=== PATIENT | female | born 2000 | race Caucasian/White ===

== ENCOUNTER 2023-10-20 16:20 | Inpatient (IN) | payer BC, MEDICARE ==
[~2023-10-20] VITALS: Ht 172.7 cm; Wt 99.8 kg
[2023-10-20 17:01] LABS: BASOPHILS # (AUTO) 0.2 K/UL (0.0-0.2); BASOPHILS % (AUTO) 2.3 % (0.0-2.0); EOSINOPHILS # (AUTO) 0.2 K/uL (0.0-0.7); EOSINOPHILS % (AUTO) 2.2 % (0.0-7.0); HEMATOCRIT 35.1 % (31.2-41.9); HEMOGLOBIN 11.1 g/dL (10.9-14.3); LYMPHOCYTES % (AUTO) 12.5 % (20.5-51.5); MEAN CORPUSCULAR HEMOGLOBIN 25.5 uug (24.7-32.8); MEAN CORPUSCULAR HGB CONC 32 g/dL (32.3-35.6); MEAN CORPUSCULAR VOLUME 80.7 fL (75.5-95.3); MONOCYTES # (AUTO) 0.4 K/uL (0.1-1.30); NEUTROPHILS # (AUTO) 6.4 K/uL (1.8-8.9); PLATELET COUNT (AUTO) 193 K/uL (179-408); RED BLOOD CELL COUNT(AUTO) 4.35 MIL/uL (3.63-4.92); RED CELL DISTRIBUTION WIDTH 13.7 % (12.3-17.7); WHITE BLOOD COUNT (AUTO) 8.3 K/uL (3.8-11.8)
[2023-10-20 17:16] LABS: DIFFERENTIAL COMMENT 1
[2023-10-20 17:27] LABS: AMMONIA 21 umol/L (11-32); CALCIUM 9.5 mg/dL (8.5-10.1); CARBON DIOXIDE 24 mmol/L (21-32); CHLORIDE 103 mmol/L (98-107); CREATININE 0.8 mg/dL (0.6-1.3); GLUCOSE 140 mg/dL (74-106); POTASSIUM 3.3 mmol/L (3.5-5.1); SODIUM SERUM 137 mmol/L (136-145); UREA NITROGEN, BLOOD 6 mg/dL (7-18)
[2023-10-20 17:28] LABS: *BILIRUBIN,URIN NEGATIVE (NEGATIVE); *BLOOD, URINE NEGATIVE (NEGATIVE); *CLARITY,URINE CLEAR (CLEAR); *COLOR,URINE YELLOW (YELLOW); *KETONES,URINE NEGATIVE (NEGATIVE); *PROTEIN,URINE NEGATIVE (NEGATIVE); *UROBILINOGEN,URINE 0.2 E.U./dl (NORMAL); LEUKOCYTE ESTERASE ,URINE NEGATIVE (NEGATIVE); NITRITE, URINE NEGATIVE (NEGATIVE); PH,URINE 7.5 (5.0-8.0); UGLUCOSE NEGATIVE (NEGATIVE)
[2023-10-20 17:35] LABS: ALANINE AMINOTRANSFERASE 30 U/L (14-59); ALBUMIN 3.4 g/dL (3.4-5.0); ALKALINE PHOSPHATASE 76 U/L (50-136); ASPARTATE AMINOTRANSFERASE 16 U/L (15-37); BILIRUBIN,DIRECT 0.1 mg/dL (0.0-0.2); BILIRUBIN,TOTAL 0.2 mg/dL (0.2-1.0); TOTAL PROTEIN, SERUM 7.3 g/dL (6.4-8.2)
[2023-10-20 17:36] LABS: *URINE HCG, QUAL NEGATIVE (NEGATIVE)
[2023-10-20 17:39] LABS: ETHANOL < 3 MG/DL (0-10); THYROID STIMULATING HORMONE 0.494 mIU/mL (0.358-3.740)
[2023-10-20 17:43] LABS: ACETAMINOPHEN < 2.0 ug/mL (10-30)
[2023-10-20 17:50] LABS: *AMPHETAMINE, URINE NEGATIVE (NEGATIVE); *BARBITURATE, URINE NEGATIVE (NEGATIVE); *BENZODIAZEPINE, URINE POSITIVE (NEGATIVE); *CANNABINOID, URINE NEGATIVE (NEGATIVE); *COCCAINE, URINE NEGATIVE (NEGATIVE); *OPIATE, URINE NEGATIVE (NEGATIVE); *PHENCYCLIDINE SCREEN,URINE NEGATIVE (NEGATIVE); FENTANYL, URINE NEGATIVE (NEGATIVE)
[2023-10-20] MEDS ORDERED: LORAZEPAM 2 MG/1 ML VIAL IV PRN (19:00)
[2023-10-20] MEDS ORDERED: MAGNESIUM HYDROXIDE 30 ML LIQUID UDC PO PRN (19:00)
[2023-10-20] MEDS ORDERED: POTASSIUM CHLORIDE 20 MEQ POWDER PACKET GT ONE (19:00)
[2023-10-20] MEDS ORDERED: ONDANSETRON 4 MG/2 ML VIAL IV PRN (19:00)
[2023-10-20] MEDS ORDERED: IV LACTATED RINGERS SOLUTION 1,000 ML IV PRN (19:00)
[2023-10-20] MEDS ORDERED: ACETAMINOPHEN 325 MG TABLET PO PRN (19:00)
[2023-10-21 06:21] LABS: CALCIUM 10.2 mg/dL (8.5-10.1); CREATININE 0.8 mg/dL (0.6-1.3); MAGNESIUM 2.3 mg/dL (1.8-2.4); PHOSPHOROUS 4.3 mg/dL (2.5-4.9); POTASSIUM 4.2 mmol/L (3.5-5.1)
[2023-10-21 06:30] LABS: THYROID STIMULATING HORMONE 0.281 mIU/mL (0.358-3.740)
[2023-10-21 06:42] LABS: BASOPHILS % (AUTO) 0.2 % (0.0-2.0); DIFFERENTIAL COMMENT 0; EOSINOPHILS # (AUTO) 0.1 K/uL (0.0-0.7); EOSINOPHILS % (AUTO) 1.2 % (0.0-7.0); HEMATOCRIT 35.9 % (31.2-41.9); HEMOGLOBIN 11.4 g/dL (10.9-14.3); LYMPHOCYTES # (AUTO) 1.3 K/uL (0.8-4.8); LYMPHOCYTES % (AUTO) 14.9 % (20.5-51.5); MEAN CORPUSCULAR HEMOGLOBIN 25.6 uug (24.7-32.8); MEAN CORPUSCULAR HGB CONC 32 g/dL (32.3-35.6); MEAN CORPUSCULAR VOLUME 80.4 fL (75.5-95.3); MONOCYTES # (AUTO) 0.4 K/uL (0.1-1.30); MONOCYTES % (AUTO) 5.2 % (0.0-11.0); NEUTROPHILS # (AUTO) 6.8 K/uL (1.8-8.9); NEUTROPHILS % (AUTO) 78.5 % (38.5-71.5); PLATELET COUNT (AUTO) 203 K/uL (179-408); RED BLOOD CELL COUNT(AUTO) 4.46 MIL/uL (3.63-4.92); RED CELL DISTRIBUTION WIDTH 13.9 % (12.3-17.7); WHITE BLOOD COUNT (AUTO) 8.6 K/uL (3.8-11.8)
[2023-10-21] MEDS: PANTOPRAZOLE SODIUM 40 MG TABLET.DR PO SCH (07:15)
[2023-10-21] MEDS: LITHIUM CARBONATE 300 MG CAPSULE PO SCH ×2 (13:19→17:13)
[2023-10-21] MEDS ORDERED: PANTOPRAZOLE SODIUM 40 MG TABLET.DR PO ONE (19:13)
[2023-10-21] MEDS ORDERED: LORAZEPAM 1 MG TABLET ONE (20:31)
[2023-10-21] MEDS: LORAZEPAM 1 MG TABLET PO PRN (20:41)
[2023-10-21 21:00] VITALS: BP 106/56; TEMP 97.5
[2023-10-21] MEDS: IV LACTATED RINGERS SOLUTION 1,000 ML IV PRN (22:20)
[2023-10-22] VITALS: BP 113/50; TEMP 97.8; O2SAT 98
[2023-10-22] MEDS ORDERED: DIAZEPAM 10 MG TABLET PO ONE (02:10)
[2023-10-22 04:00] VITALS: BP 133/58; TEMP 98.1; O2SAT 97
[2023-10-22] MEDS: LORAZEPAM 1 MG TABLET PO PRN (04:36)
[2023-10-22] MEDS: PANTOPRAZOLE SODIUM 40 MG TABLET.DR PO SCH (06:23)
[2023-10-22 07:42] LABS: BASOPHILS % (AUTO) 0.4 % (0.0-2.0); EOSINOPHILS # (AUTO) 0.1 K/uL (0.0-0.7); EOSINOPHILS % (AUTO) 1.2 % (0.0-7.0); HEMATOCRIT 36.8 % (31.2-41.9); LYMPHOCYTES # (AUTO) 1.7 K/uL (0.8-4.8); LYMPHOCYTES % (AUTO) 17.9 % (20.5-51.5); MEAN CORPUSCULAR HEMOGLOBIN 25.8 uug (24.7-32.8); MEAN CORPUSCULAR HGB CONC 33 g/dL (32.3-35.6); MEAN CORPUSCULAR VOLUME 79.3 fL (75.5-95.3); MONOCYTES # (AUTO) 0.6 K/uL (0.1-1.30); MONOCYTES % (AUTO) 5.9 % (0.0-11.0); NEUTROPHILS % (AUTO) 74.6 % (38.5-71.5); PLATELET COUNT (AUTO) 200 K/uL (179-408); RED BLOOD CELL COUNT(AUTO) 4.64 MIL/uL (3.63-4.92); RED CELL DISTRIBUTION WIDTH 13.7 % (12.3-17.7); WHITE BLOOD COUNT (AUTO) 9.4 K/uL (3.8-11.8)
[2023-10-22 07:55] LABS: CALCIUM 10.2 mg/dL (8.5-10.1); CREATININE 0.8 mg/dL (0.6-1.3); MAGNESIUM 2.2 mg/dL (1.8-2.4); PHOSPHOROUS 4.9 mg/dL (2.5-4.9); POTASSIUM 4.1 mmol/L (3.5-5.1)
[2023-10-22 08:00] VITALS: BP 99/61; TEMP 98.2; O2SAT 98
[2023-10-22 08:03] LABS: DIFFERENTIAL COMMENT 1
[2023-10-22] MEDS: LITHIUM CARBONATE 300 MG CAPSULE PO SCH ×3 (08:26→16:38)
[2023-10-22] MEDS ORDERED: LORAZEPAM 1 MG TABLET PO PRN (09:00)
[2023-10-22 12:00] VITALS: BP 111/56; TEMP 97.9; O2SAT 97
[2023-10-22] MEDS ORDERED: HYDROCODONE/APAP 10-325 MG TABLET PO PRN (12:15)
[2023-10-22] MEDS ORDERED: DIAZEPAM 5 MG TABLET PO PRN (12:15)
[2023-10-22] MEDS: NICOTINE 14 MG/24HR PATCH TD SCH (13:33)
[2023-10-22] MEDS ORDERED: ACETAMINOPHEN 325 MG TABLET GT PRN (15:32)
[2023-10-22] MEDS ORDERED: MAGNESIUM HYDROXIDE 30 ML LIQUID UDC GT PRN (15:33)
[2023-10-22] MEDS ORDERED: HYDROCODONE/APAP 10-325 MG TABLET GT PRN (15:33)
[2023-10-22] MEDS ORDERED: DIAZEPAM 5 MG TABLET GT PRN (15:33)
[2023-10-22] MEDS ORDERED: JEVITY 1.2 1000 ML LIQUID GT PRN (15:45)
[2023-10-22] MEDS ORDERED: VITAL AF 1.2 1,000 ML LIQUID GT SCH (16:15)
[2023-10-22] MEDS: IV LACTATED RINGERS SOLUTION 1,000 ML IV PRN (16:49)
[2023-10-22 20:00] VITALS: BP 95/45; TEMP 98; O2SAT 97
[2023-10-23] VITALS: BP 141/71; TEMP 98.3; O2SAT 97
[2023-10-23 04:00] VITALS: BP 99/54; TEMP 98; O2SAT 98
[2023-10-23] MEDS ORDERED: TRAZ150T75 PO (04:32)
[2023-10-23] MEDS ORDERED: METF-886 PO (04:32)
[2023-10-23] MEDS ORDERED: BUPR8TAB4 SL (04:32)
[2023-10-23] MEDS ORDERED: BACL10TA PO (04:32)
[2023-10-23] MEDS ORDERED: PRUC2TAB PO (04:32)
[2023-10-23] MEDS ORDERED: LITH600C PO (04:32)
[2023-10-23] MEDS ORDERED: LORA5SOL38 PO (04:32)
[2023-10-23] MEDS ORDERED: AMPH20TA3 PO (04:32)
[2023-10-23] MEDS ORDERED: LURA120T PO (04:32)
[2023-10-23] MEDS ORDERED: BUPR-53 PO (04:32)
[2023-10-23] MEDS ORDERED: LINA145C PO (04:32)
[2023-10-23] MEDS ORDERED: GABA800T11 PO (04:32)
[2023-10-23] MEDS ORDERED: PANTOPRAZOLE ORAL SUSPENSION 40 MG SUSPDR.PKT GT SCH (06:00)
[2023-10-23 06:34] LABS: BASOPHILS % (AUTO) 0.3 % (0.0-2.0); EOSINOPHILS # (AUTO) 0.1 K/uL (0.0-0.7); EOSINOPHILS % (AUTO) 1.1 % (0.0-7.0); HEMATOCRIT 36.6 % (31.2-41.9); HEMOGLOBIN 11.9 g/dL (10.9-14.3); LYMPHOCYTES # (AUTO) 1.5 K/uL (0.8-4.8); LYMPHOCYTES % (AUTO) 15.9 % (20.5-51.5); MEAN CORPUSCULAR HEMOGLOBIN 25.8 uug (24.7-32.8); MEAN CORPUSCULAR HGB CONC 32 g/dL (32.3-35.6); MEAN CORPUSCULAR VOLUME 79.7 fL (75.5-95.3); MONOCYTES # (AUTO) 0.5 K/uL (0.1-1.30); MONOCYTES % (AUTO) 5.6 % (0.0-11.0); NEUTROPHILS # (AUTO) 7.4 K/uL (1.8-8.9); NEUTROPHILS % (AUTO) 77.1 % (38.5-71.5); PLATELET COUNT (AUTO) 178 K/uL (179-408); RED CELL DISTRIBUTION WIDTH 13.5 % (12.3-17.7); WHITE BLOOD COUNT (AUTO) 9.6 K/uL (3.8-11.8)
[2023-10-23 06:42] LABS: DIFFERENTIAL COMMENT 1
[2023-10-23 06:47] LABS: CALCIUM 10.1 mg/dL (8.5-10.1); CREATININE 0.7 mg/dL (0.6-1.3)
[2023-10-23 06:53] LABS: ALBUMIN 3.7 g/dL (3.4-5.0); BILIRUBIN,DIRECT 0.1 mg/dL (0.0-0.2); BILIRUBIN,TOTAL 0.3 mg/dL (0.2-1.0); TOTAL PROTEIN, SERUM 7.5 g/dL (6.4-8.2)
[2023-10-23] MEDS: LITHIUM CARBONATE 300 MG CAPSULE PO SCH ×2 (08:08→13:51)
[2023-10-23] MEDS: NICOTINE 14 MG/24HR PATCH TD SCH (08:08)
[2023-10-23] MEDS ORDERED: DIAZEPAM 5 MG TABLET GT PRN (08:15)
[2023-10-23] MEDS ORDERED: CLOTRIMAZOLE 1% CREAM 30 GM TUBE TOP SCH (12:00)
[2023-10-23] MEDS ORDERED: CLOT30CR24 TOP (14:14)
[2023-10-23] MEDS ORDERED: NICO-671 TD (14:14)
[2023-10-23] MEDS ORDERED: DIAZ5TAB4 GT (14:14)
[2023-10-23] MEDS ORDERED: LITH300C4 PO (14:14)
== END 2023-10-23 16:35 | disposition home health service (06) | DRG 918 ==
LOC: ER 16:22 → TRANSITION 10-21 10:10 → MEDSURG3 10-21 20:37 → TELE3 10-21 22:05 → MEDSURG3 10-23 11:20
PROVIDERS: ADMIT Nurse Practitioner Family; ATTEND Nurse Practitioner Acute Care
DX: T43.212A Poisoning by selective serotonin and norepinephrine reuptake inhibitors, intentional self-harm, initial encounter (principal); F31.63 Bipolar disorder, current episode mixed, severe, without psychotic features; E87.6 Hypokalemia; K31.84 Gastroparesis; Z93.1 Gastrostomy status; F60.3 Borderline personality disorder; Z79.84 Long term (current) use of oral hypoglycemic drugs; G90.A Postural orthostatic tachycardia syndrome [POTS]; Y92.009 Unspecified place in unspecified non-institutional (private) residence as the place of occurrence of the external cause; R73.9 Hyperglycemia, unspecified
CPT/HCPCS: 36415; 70450; 71045; 83735; 84100; 84443; 84481; 84484; 84703; 85025; 85730; 93005; A4606; A4663; C1758; G0378; G0480; J2405; J7120